=== PATIENT | female | born 1945 ===

== ENCOUNTER 2017-02-05 14:20 | Outpatient (CLI) | payer MEDICARE, MEDICAID ==
--- NOTE | 2017-02-08 14:29 | Diagnostic Imaging Report ---
APPROVED REPORT CPT Code: 77068 Present Symptoms Comments: Bilateral Ankle Edema Technically difficult study due to vessel depth and pain Risk Factors Obesity BILATERAL: Imaging reveals a patent deep venous system bilaterally. There is no evidence of thrombus within the femoral, popliteal or tibial segments. The greater saphenous veins are also within normal limits. Doppler indicates normal spontaneous flow within these segments.
== END 2017-02-05 16:20 | disposition home or self-care (01) ==
LOC: RAD 14:20
DX: R60.0 Localized edema (principal)
CPT/HCPCS: 93970